=== PATIENT | female | born 1980 | race African-American/Black ===

== ENCOUNTER → 2016-06-24 | Outpatient (CLI) | payer BC, OTHER ==
[~2016-06-24] MED LIST: MOBIC15 MG PO
== END | disposition home or self-care (01) ==
LOC: CBAR 13:04
DX: Z01.812 Encounter for preprocedural laboratory examination (principal); E66.01 Morbid (severe) obesity due to excess calories
CPT/HCPCS: 36415; 84443; 86677; G0463

== ENCOUNTER → 2016-07-18 | Outpatient (CLI) | payer BC, OTHER ==
--- NOTE | ~2016-07-18 | EKG ---
PATIENT: LABERTO HAWKINS UNIT #: [id number] Ventricular Rate: 59 BPM Atrial Rate: 59 BPM P-R Interval: 200 ms QRS Duration: 78 ms Q-T Interval: 404 ms QTC Calculation(Bezet): 399 ms P [place]: 69 degrees Calculated R [place]: 81 degrees Calculated T [place]: 39 degrees Diagnosis Line: Sinus bradycardia Diagnosis Line: Otherwise normal ECG Diagnosis Line: No previous ECGs available Diagnosis Line: Confirmed by KARINA GLASGOW MD ([id number]) on 07/18/2016 Diagnosis Line: 8:10:01 PM INTERPRETING MD: PEE GOODMAN
--- NOTE | ~2016-07-18 | CR63 ---
[facility] A Service of [facility] & [facility] / [facility] RADIOLOGY TEXT RESULTS PATIENT: ALBERTO HAWKINS LOCATION: [facility] : 78 UNIT #: [id number] AGE: [address]: Cliff Cheatham III, MD SEX: F ORDER DR: [id number] [facility] [address] [place], [place] [address] [id number] O MR#: [id number] Acc #: [id number] NAME: ALBERTO HAWKINS : 1980 SEX: F STUDY DATE/TIME: 07/18/2016 7:46 UNIT: [facility] ROOM: STUDY DESCRIPTION: CR Chest 2 View Attending Physician: Cliff Cheatham III, M.D. Referring Physician: Cliff Cheatham III, M.D. Ordering Physician: Cliff Cheatham III, M.D. Primary Care Physician: Paula Blanchard M.D. MEDICAL IMAGING REPORT This report is preliminary unless electronic signature is present EXAM Chest PA and lateral, 07/18/2016 HISTORY Morbid obesity, preop laparoscopic gastric banding. Shortness of breath, cough and chest congestion today. Benign essential hypertension. FINDINGS PA and lateral examination of the chest upright shows a good expansion of the parenchyma with a normal distribution of the pulmonary vascularity. There is no indication of congestion, effusion, infiltrate, tumor, or nodular density. The pleural reflections and diaphragmatic contours are normal. The cardiac silhouette and mediastinal anatomy is within normal limits. IMPRESSION Normal chest. Dictated by... Levon Campos M.D. THIS IS AN ELECTRONICALLY VERIFIED REPORT Levon Campos M.D. at 07/18/2016 4:35 PM UMAIR/david TD: 07/18/2016 09:13 JOB #: [id number] MEDICAL IMAGING REPORT Page 1 of 1 COPY
--- NOTE | ~2016-07-18 | CR97 ---
[facility] A Service of [facility] & [facility] RADIOLOGY TEXT RESULTS PATIENT: ALBERTO HAWKINS LOCATION: [facility] : 78 UNIT #: [id number] AGE: [address]: Cliff Cheatham III, MD SEX: F ORDER DR: [id number] [facility] [address] [place], [place] [address] [id number] O MR#: [id number] Acc #: [id number] NAME: ALBERTO HAWKINS : 1980 SEX: F STUDY DATE/TIME: 07/18/2016 8:25 UNIT: [facility] ROOM: STUDY DESCRIPTION: CR Esophagram Attending Physician: Cliff Cheatham III, M.D. Referring Physician: Cliff Cheatham III, M.D. Ordering Physician: Cliff Cheatham III, M.D. Primary Care Physician: Paula Blanchard M.D. MEDICAL IMAGING REPORT This report is preliminary unless electronic signature is present EXAM Barium esophagram HISTORY SUPPLIED Preop lap-band surgery. FINDINGS Under fluoroscopic control barium was administered orally. Swallowing was normal. The esophagus was of normal course, caliber, mucosa pattern, and distensibility. CONCLUSION 1. Normal. 2. 24 images were obtained with a total fluoroscopy time of 0.9 minutes. Dictated by... Leonides Malagon M.D. THIS IS AN ELECTRONICALLY VERIFIED REPORT Leonides Malagon M.D. at 07/18/2016 4:40 PM Mariam TD: 07/18/2016 11:33 JOB #: [id number] MEDICAL IMAGING REPORT Page 1 of 1 COPY
[2016-07-18 09:21] LABS: HEMATOCRIT 35.3 % (35.0-45.0); HEMOGLOBIN 11.1 gm/dL (12.0-16.0); MEAN CELL VOLUME 77.6 FL (83-96); MEAN CORPUSCULAR HEMOGLOBIN 24.5 PG (28-34); MEAN CORPUSCULAR HGB CONC 31.5 g/dL (30-36); MEAN PLATELET VOLUME 9.8 FL (6.5-11.5); RED BLOOD COUNT 4.55 X10e (3.90-5.30); RED CELL DISTRIBUTION WIDTH 15.7 % (11.0-15.5); WHITE BLOOD COUNT 9.4 X10e3 (4.0-10.5)
[2016-07-18 10:28] LABS: ALBUMIN SERUM 3.4 g/dL (3.5-5.0); BILIRUBIN,TOTAL 0.4 mg/dL (0.2-2.0); CALCIUM SERUM 8.8 mg/dL (8.4-10.2); GLOM FILT RATE Estimated 83.4 mL/min (>60); PROTEIN TOTAL SERUM 6.8 g/dL (6.0-8.3)
== END | disposition home or self-care (01) ==
LOC: CRAD 07:32 → CAMB 09:30
PROVIDERS: Surgery
DX: Z01.818 Encounter for other preprocedural examination (principal); E66.01 Morbid (severe) obesity due to excess calories; R00.1 Bradycardia, unspecified
CPT/HCPCS: 36415; 71020; 74220; 80053; 80061; 84443; 85027; 93005

== ENCOUNTER → 2016-07-30 | Day surgery (SDC) | payer BC, OTHER ==
--- NOTE | ~2016-07-30 | CR7 ---
[facility] A Service of [facility] & [facility] RADIOLOGY TEXT RESULTS PATIENT: ALBERTO HAWKINS LOCATION: [facility] : 78 UNIT #: [id number] AGE: [address]: Cliff Cheatham III, MD SEX: F ORDER DR: [id number] [facility] [address] [place], [place] [address] [id number] O MR#: [id number] Acc #: [id number] NAME: ALBERTO HAWKINS : 1980 SEX: F STUDY DATE/TIME: 07/30/2016 10:32 UNIT: [facility] ROOM: STUDY DESCRIPTION: CR Abdomen Single AP View Attending Physician: Cliff Cheatham III, M.D. Ordering Physician: Cliff Cheatham III, M.D. Primary Care Physician: Paula Blanchard M.D. MEDICAL IMAGING REPORT This report is preliminary unless electronic signature is present EXAM Single view abdomen, 07/30. INDICATION Gastric band placement today. Morbid obesity. FINDINGS Supine view of the abdomen was obtained. Gastric band is present with a supine phi angle of about 68 degrees. The port is in the left lower quadrant. Bowel gas pattern normal. IMPRESSION Gastric band in place with phi angle of 68 degrees. Dictated by... Sergio Wilson Jr., M.D. THIS IS AN ELECTRONICALLY VERIFIED REPORT Sergio Wilson Jr., M.D. at 07/30/2016 6:33 PM VARINDER/henry TD: 07/30/2016 13:40 JOB #: [id number] MEDICAL IMAGING REPORT Page 1 of 1 COPY
--- NOTE | ~2016-07-30 | OR ---
Unit #: [id number] #: [id number] Patient: ALBERTO HAWKINS [id number] [facility] [address] [place], [place] [address] [id number] O MR#: [id number] NAME: ALBERTO HAWKINS ROOM: Date of Procedure: 07/30/2016 Admission Date: 07/30/2016 Surgeon: Cliff Cheatham III, M.D. : 1980 Attending Physician: Cliff Cheatham III, M.D. Primary Care Physician: Paula Blanchard M.D. OPERATIVE REPORT PREOPERATIVE DIAGNOSIS Chronic morbid obesity. POSTOPERATIVE DIAGNOSIS Chronic morbid obesity. SECONDARY DIAGNOSIS Anterior paraesophageal hernia. PROCEDURE PERFORMED Laparoscopic adjustable gastric banding (AP standard with low-profile port) and laparoscopic paraesophageal hernia repair. POLYSOMNOGRAPHY TECHNOLOGIST Dr. Leonides Garcia. SPECIMENS None. COMPLICATIONS None apparent. ESTIMATED BLOOD LOSS Minimal. ANESTHESIA General endotracheal tube anesthesia. INDICATIONS FOR PROCEDURE This is a 36-year-old lady, who has chronic morbid obesity with a BMI of 40 and associated comorbidities of hypertension, elevated cholesterol levels, and diabetes. She has been through the bariatric program at [facility] and understands the risks and benefits of the procedure. DESCRIPTION OF PROCEDURE After consent was obtained, including the risks and benefits of slippage, erosion, port dysfunction, and possible failure of weight loss due to noncompliance, the patient was taken to the operating room and placed in the supine position. General anesthetic was administered and the abdomen was prepped and draped in standard surgical fashion. Unit #: [id number] #: [id number] Patient: ALBERTO HAWKINS I began by making a 2 cm incision just above and to the left of the umbilicus. I used a Visiport to enter the peritoneal cavity without any difficulty. C02 pneumoperitoneum was then established. Next, I placed a 5 mm port in the right upper quadrant, a 5 mm Allan liver retractor in the subxiphoid region to provide exposure of the gastroesophageal junction. Next, a 10 mm port was placed in the left upper quadrant and a 5 mm port was placed in the left lateral subcostal region. I began by performing an examination of the GE junction to evaluate for a hiatal hernia. We then scored the peritoneal attachments overlying the angle of His. I then opened up the clear space in the gastrohepatic ligament, and then using 2 blunt graspers, I identified the small fat pad crossing over the right crura. I swept the fat anterior to the crura off the crura and using the pars flaccida, I created a retrogastric tunnel where the blunt grasper exited at the angle of His. Once I had made this tunnel safely, I then inserted an Allergan AP band into the abdominal cavity. This adjustable gastric band was then place around the upper part of the stomach and fastened and buckled anteriorly. We then tacked the lateral fundus over the band to the proximal pouch with 2 interrupted 0 Ethibond sutures. I then used a third stitch to imbricate the excess anterior stomach by going from the lesser curvature up towards where the last stitch was placed. We then had excellent hemostasis. I removed the Allan liver retractor. We then removed the port tubing through the initial port incision. The rest of the ports were removed, and the pneumoperitoneum was released. I then left a small tail on the tubing. We then attached the port to the excess band tubing. We placed a piece of Prolene mesh along the back side of the port and used a Prolene stitch to anchor this mesh in place. We then trimmed the excess mesh so that just a small footprint of mesh was in place behind the port. I then inserted the tubing back into the abdominal cavity, and we placed the port into a small pocket that was made just inferior to where our initial port incision was made. The mesh was in direct contact with the fascia, and this will scar in place to hold the port in place. We then injected all the port sites with 0.25% plain Marcaine, and I reapproximated the skin edges with interrupted 4-0 Vicryl subcuticular sutures. Steri-strips were then applied. The patient tolerated the procedure without any problems and returned to the recovery room in stable condition. ADDENDUM After exposure of the GE junction, the patient was noted to have a small to medium size anterior paraesophageal hernia. I scored the phrenoesophageal ligament, reduced the hernia defect completely including dissection out of the hernia sac. I then was able to identify the right and left crura and I reapproximated the defect with an interrupted 0 Ethibond [id number] suture. I then proceed with the case as listed above. Dictated by... Cliff Cheatham III, M.D. VCL/vasquez TD: 07/31/2016 08:21 JOB #: [id number] CC: Paula Blanchard M.D. Unit #: [id number] #: [id number] Patient: ALBERTO HAWKINS OPERATIVE REPORT Page 1 of 1 X Cliff Cheatham III, MD PROCEDURE OPERATIVE NOTE
== END | disposition home or self-care (01) ==
LOC: CSUR 06:48
DX: E66.01 Morbid (severe) obesity due to excess calories (principal); K44.9 Diaphragmatic hernia without obstruction or gangrene; E11.9 Type 2 diabetes mellitus without complications; Z68.41 Body mass index [BMI] 40.0-44.9, adult; Z80.3 Family history of malignant neoplasm of breast; Z79.1 Long term (current) use of non-steroidal anti-inflammatories (NSAID)
CPT/HCPCS: 74000; 82947; 84703; C1781; J0330; J0690; J1650; J1885; J2250; J2405; J2710; J3010